=== PATIENT | male | born 1960 | race Caucasian/White ===

== ENCOUNTER 2021-04-10 17:22 | Emergency (ER) | payer SELFPAY ==
[~2021-04-10] VITALS: Ht 157.5 cm; Wt 63.5 kg
[2021-04-10 17:22] VITALS: BP_SYST 144
--- NOTE | 2021-04-10 17:25 | NUR ---
BROUGHT IN BY P AND PLACED IN HALLWAY, TRIAGED AND REPORT GIVEN TO MANDI
--- NOTE | 2021-04-10 17:30 | NUR ---
Pt brought in by [facility] for blood draw and ok to book. Policy Change Clerk Charmaine at bedside. Pt is alert and oriented x4. No signs of trauma noted. Vital signs all stable. Perrla and no signs of distress.
--- NOTE | 2021-04-10 17:55 | NUR ---
EH Estrada at bedside examining patient.
--- NOTE | 2021-04-10 17:58 | NUR ---
Blood drawn using idodine. Pt tolerated well. CHP at bedside.
--- NOTE | 2021-04-10 18:06 | NUR ---
Bedside glucose 130
--- NOTE | 2021-04-10 18:15 | NUR ---
Patient given written and verbal discharge instructions and verbalizes understanding. ER MD discussed with patient the results and treatment provided. Patient in stable condition. ID arm band removed. IV catheter removed intact and dressing applied, no active bleeding. Patient educated on pain management and to follow up with PMD. Pain Scale 0. Opportunity for questions provided and answered. Medication side effect fact sheet provided.
[2021-04-10 18:16] VITALS: BP_SYST 144
== END 2021-04-10 18:15 | disposition home or self-care (01) ==
LOC: SED 17:22
DX: Z02.89 Encounter for other administrative examinations (principal); I10 Essential (primary) hypertension; E11.9 Type 2 diabetes mellitus without complications; F17.210 Nicotine dependence, cigarettes, uncomplicated
CPT/HCPCS: 82962; 99283